=== PATIENT | female | born 1970 | race Caucasian/White ===

== ENCOUNTER 2016-09-01 13:32 | Emergency (ER) | payer OTHER ==
[2017-01-18] MEDS ORDERED: LEVOTHYROXINE75 MCG PO (23:32)
[2017-01-18] MEDS ORDERED: LAMOTRIGINE ER300 MG PO (23:32)
[2017-01-18] MEDS ORDERED: VRAYLAR PO (23:34)
[2017-01-19] MEDS ORDERED: ELIQUIS 5 MG TAB5 MG PO (17:48)
== END 2016-09-01 15:30 | disposition home or self-care (01) ==
LOC: ER1 13:32
DX: R20.9 Unspecified disturbances of skin sensation (principal); E78.5 Hyperlipidemia, unspecified; F31.9 Bipolar disorder, unspecified; F32.9 Major depressive disorder, single episode, unspecified; Z88.0 Allergy status to penicillin; Z88.8 Allergy status to other drugs, medicaments and biological substances; Z90.89 Acquired absence of other organs
CPT/HCPCS: 70450; 99284

== ENCOUNTER → 2020-06-07 | Outpatient (CLI) | payer OTHER ==
[~2020-06-07] MED LIST: CYCLOBENZAPRINE10 MG PO; ELIQUIS 5 MG TAB5 MG PO; LAMOTRIGINE ER300 MG PO; LEVOTHYROXINE75 MCG PO; PREDNISONE 20 M20 MG PO; VRAYLAR PO
== END ==
LOC: SLEEP 14:19
DX: Z53.21 Procedure and treatment not carried out due to patient leaving prior to being seen by health care provider (principal)

== ENCOUNTER 2020-12-08 10:13 | Emergency (ER) | payer OTHER ==
[~2020-12-08 10:13] MED LIST changes: -CYCLOBENZAPRINE10 MG PO; -PREDNISONE 20 M20 MG PO
[2020-12-08 12:36] LABS: HEMOGLOBIN 15.2 gm/dl (12.3-15.3); RED BLOOD COUNT 5.03 M/UL (4.00-5.10)
[2020-12-08] MEDS ORDERED: PREDNISONE 20 M20 MG PO (14:31)
[2020-12-08] MEDS ORDERED: CYCLOBENZAPRINE10 MG PO (14:31)
== END 2020-12-08 14:36 | disposition home or self-care (01) ==
LOC: ER1 10:13
PROVIDERS: Physician Assistant Medical
DX: M79.604 Pain in right leg (principal); M79.605 Pain in left leg; E03.9 Hypothyroidism, unspecified; Z88.0 Allergy status to penicillin; Z88.8 Allergy status to other drugs, medicaments and biological substances
CPT/HCPCS: 80053; 82550; 82553; 83874; 84484; 85025; 99283

== ENCOUNTER 2021-01-10 13:56 | Emergency (ER) | payer OTHER ==
[~2021-01-10 13:56] MED LIST changes: +CYCLOBENZAPRINE10 MG PO; +PREDNISONE 20 M20 MG PO
[2021-01-10 15:23] LABS: HEMOGLOBIN 15.4 gm/dl (12.3-15.3); RED BLOOD COUNT 5.4 M/UL (4.00-5.10); WHITE BLOOD COUNT 3.8 K/UL (4.5-11.0)
[2021-01-10 15:47] LABS: BUN/CREATININE RATIO 11 (0-10)
== END 2021-01-10 23:10 | disposition home or self-care (01) ==
LOC: ER1 13:56
PROVIDERS: Physician Assistant
DX: Z23 Encounter for immunization (principal); U07.1 COVID-19; Z86.711 Personal history of pulmonary embolism; Z88.0 Allergy status to penicillin; Z88.8 Allergy status to other drugs, medicaments and biological substances
CPT/HCPCS: 71045; 80053; 82550; 82553; 83874; 84484; 85025; 85379; 93005; 99285; M0243; Q9967; U0002

== ENCOUNTER → 2021-02-09 | Outpatient (CLI) | payer OTHER | LOC: KOH-I 14:04 | DX: R06.02 Shortness of breath (principal); R07.89 Other chest pain; Z86.16 Personal history of COVID-19 | CPT/HCPCS: 71046 ==

== ENCOUNTER → 2021-05-07 | Outpatient (CLI) | payer OTHER | LOC: ECHO 09:00 | DX: R06.00 Dyspnea, unspecified (principal) | CPT/HCPCS: ECHO; 93306 ==

== ENCOUNTER 2021-09-09 00:22 | Emergency (ER) | payer OTHER ==
[2021-09-09 02:37] LABS: HEMOGLOBIN 15.1 gm/dl (12.3-15.3); RED BLOOD COUNT 4.99 M/UL (4.00-5.10); WHITE BLOOD COUNT 8.1 K/UL (4.5-11.0)
[2021-09-09 02:57] LABS: BUN/CREATININE RATIO 16 (0-10)
== END 2021-09-09 04:25 | disposition home or self-care (01) ==
LOC: ER1 00:22
PROVIDERS: Student in an Organized Health Care Education/Training Program
DX: L03.116 Cellulitis of left lower limb (principal); Z88.0 Allergy status to penicillin
CPT/HCPCS: 80048; 85025; 99283